=== PATIENT | male | born 1965 | race Two or more races ===

== ENCOUNTER 2020-12-18 20:32 | Emergency (ER) | payer BC, SELFPAY ==
[~2020-12-18] VITALS: Ht 182.9 cm; Wt 104.5 kg
--- NOTE | 2020-12-18 20:55 | NUR ---
PATIENT BROUGHT IN BY [facility] FOR ETOH AND SI. DENIES HI. DENIES AH/VH. CRYING THROUGHOUT ASSESSMENT AND INTERMITTENT HYPERVENTILATION. PATIENT ASKS "CAN YOU JUST SHOOT ME OR PUT ME DOWN? I DONT WANT TO LIVE ANYMORE". EMS DID REPORT PATIENT HAD SAME STATEMENTS TO THEM WELL DURING TRANSPORT. CLOTHING REMOVED AND PLACED INTO PERSONAL PATIENT BELONGING BAGS AND PLACED IN SECURED LOCKED CABINET IN ER. 2 BAGS. SIDE RAILS UP FOR SAFETY. SITTER IN VIEW OF PATIENT FOR SAFETY. WARM BLANKET PROVIDED. WILL CONTINUE TO MONITOR. Addendum: 12/18/20 at 2057 by ADOUGHTY ROOM MADE SAFE FOR PATIENT
--- NOTE | 2020-12-18 21:13 | NUR ---
PATIENT CONTINUES TO BE IMPULSIVE GETTING UP OUT OF BED AND PULLING GOWN OFF AND BLANKETS. RN IN MULTIPLE TIMES TO BEDSIDE TO REDIRECT PATIENT AND INSTRUCT PATIENT TO RETURN TO BED. PATIENT IS ABLE TO FOLLOW THIS REQUEST. HE BEGINS TO CRY AND HYPERVENTILATE AND STATES "I WANT TO KILL MYSELF. I NEED TO LEAVE". SITTER IN VIEW OF PATIENT. SIDE RAILS REMAIN UP FOR SAFETY. I DO NOT FEEL PATIENT WOULD BE SAFE WITH CALL [facility] AT THIS TIME. WILL CONTNUE TO MONITOR.
[2020-12-18] MEDS ORDERED: ZIPRASIDONE 20 MG INJ IM ONE (21:30)
[2020-12-18 21:40] LABS: BASOPHILS % (AUTO) 1 % (0-1); EOSINOPHILS % (AUTO) 1 % (1-7); LYMPHOCYTES % (AUTO) 29 % (22-44); MEAN CORPUSCULAR HEMOGLOBIN 32.3 pg (27.5-34.5); MEAN CORPUSCULAR HGB CONC 34.8 g/dL (33.2-36.2); MEAN PLATELET VOLUME 6.7 fL (7.4-10.4); MONOCYTES % (AUTO) 10 % (2-9); NEUTROPHILS % (AUTO) 60 % (42-75); PLATELET COUNT 281 x10^3/uL (130-400); RED CELL DISTRIBUTION WIDTH 14.1 % (9.4-14.8)
[2020-12-18 21:41] LABS: MD NO
[2020-12-18 21:51] LABS: ALANINE AMINOTRANSFERASE 30 U/L (12-78); ALBUMIN 4.3 g/dL (3.4-5.0); ANION GAP 16 mmol/L (5-15); CALCIUM 8.5 mg/dL (8.5-10.1); CHLORIDE 108 mmol/L (98-107); SALICYLATE LEVEL 3.6 mg/dL (2.8-20.0)
[2020-12-18 21:54] LABS: AMPHETAMINE SCREEN, URINE Negative (Negative); BARBITURATE SCREEN, URINE Negative (Negative); BENZODIAZEPINE SCREEN, URINE Negative (Negative); CANNABINOID SCREEN, URINE Negative (Negative); COCAINE SCREEN, URINE Negative (Negative); METHADONE SCREEN, URINE Negative (Negative); OPIATE SCREEN, URINE Negative (Negative)
[2020-12-18] MEDS ORDERED: PLEASE ENTER ALLERGIES MC SCH (22:00)
[2020-12-18 22:02] LABS: ALKALINE PHOSPHATASE 104 U/L (45-117); BILIRUBIN,TOTAL 0.5 mg/dL (0.2-1.0); CREATININE 1.04 mg/dL (0.7-1.3); TOTAL PROTEIN 8.6 g/dL (6.4-8.2)
--- NOTE | 2020-12-18 22:15 | NUR ---
PATIENT RESTLESS IN ROOM BUT REDIRECTABLE. HE IS FOLLOWING COMMANDS AT THIS TIME. PATIENT REPEATING URGE TO "HAVE A SMOKE". DR. NÚÑEZ NOTIFIED OF THIS AND NICOTINE PATCH ORDERED. SITTER IN VIEW OF PATIENT. CUP OF WATER PROVIDED X 2. WILL CONTINUE TO MONITOR
[2020-12-18] MEDS ORDERED: NICOTINE 21 MG/24 HR PATCH.TD24 ONE (22:19)
[2020-12-18] MEDS ORDERED: NICOTINE 21 MG/24 HR PATCH.TD24 TD ONE (22:30)
--- NOTE | 2020-12-18 22:35 | NUR ---
PATIENT REQUESTING "SOMETHING TO KNOCK ME OUT. I WANT TO SLEEP BUT I HAVE INSOMNIA". LIGHTS DIMMED PER PATIENT REQUEST AND 2 CUPS OF WATER PROVIDED. SITTER IN VIEW OF PATIENT FOR SAFETY. WILL CONTINUE TO MONITOR
--- NOTE | 2020-12-18 23:14 | NUR ---
PATIENT NOT STAYING IN BED AND CONTINUES TO GET UP AND ASK FOR WATER. 6 CUP OF WATER PROVIDED TO PATIENT IN APPROX 30 MINUTES. PATIENT NOT ADHERING TO REQUESTS OF STAYING IN BED. PATIENT REPORTED ON ARRIVAL TO ER THAT HIS SI HAS BEEN CHRONIC "YEMARISELA GONSALEZ HAD SUICIDAL THOUGHTS FOR YEARS". PATIENT REPORTS THAT HE DOES WANT HELP. HAS NOT VOICED SI DURING MD AND PATIENT'S CONVERSATION. PATIENT IS STARTING TO STAFF SPLIT BY STATING IM A LIAR AND IM MEAN BECAUSE I WILLL NOT GIVE HIM MORE WATER WHEN HE DEMANDS IT. I HAVE BEEN CHECKING ON THIS PATIENT Q5 MINUTES DUE TO HIS BEHAVIOR AND ROWDINESS. DR. NÚÑEZ AND PATIENT DECIDED ON PLAN OF CARE TO DISCHARGE PATIENT AND SUPPLY HIM WITH CAB VOUCHER TO [place] TO RECEIVE CLINICAL SCIENTIST TREATMENT FOR HIS ALCOHOL ADDICTION AND DEPENDENCE. PATIENT AGREED TO DO THIS. STEADY GAIT IN ROOM. A&OX4.
--- NOTE | 2020-12-18 23:30 | NUR ---
DISCHARGE INSTRUCTIONS REVIEWED WITH PATIENT. [employer]OURCE [employer] FOR PSYCH/THERAPY, DRUG/ALCOHOL ADDICTION FACILITIES AND HOUSING COMMUNITY RESOURCES PROVIDED AND REVIEWED. CAB VOUCHER TO [place] PROVIDED AND PATIENT STATES "I WILL GO. I KNOW I NEED HELP". STEADY GAIT TO LOBBY. ALL PERSONAL BELONGINGS WITH PATIENT ON DEPARTURE. A&OX4 ON DEPARTURE. NO IV PLACED DURING THIS ER VISIT
[2020-12-18 23:41] VITALS: BP 139/102
== END 2020-12-18 23:44 | disposition home or self-care (01) ==
LOC: ED 23:33
DX: R45.851 Suicidal ideations (principal); F10.220 Alcohol dependence with intoxication, uncomplicated; F32.9 Major depressive disorder, single episode, unspecified; Y90.0 Blood alcohol level of less than 20 mg/100 ml
CPT/HCPCS: 36415; 80053; 80299; 80307; 80320; 80329; 85025; 99284; G0480

== ENCOUNTER 2021-01-07 16:11 | Emergency (ER) | payer SELFPAY ==
[~2021-01-07] VITALS: Ht 185.4 cm; Wt 88.6 kg
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
[2021-01-07 16:51] LABS: BASOPHILS % (AUTO) 1 % (0-1); EOSINOPHILS % (AUTO) 2 % (1-7); LYMPHOCYTES % (AUTO) 32 % (22-44); MEAN CORPUSCULAR HEMOGLOBIN 32.6 pg (27.5-34.5); MEAN CORPUSCULAR HGB CONC 34.9 g/dL (33.2-36.2); MEAN PLATELET VOLUME 7.2 fL (7.4-10.4); MONOCYTES % (AUTO) 8 % (2-9); NEUTROPHILS % (AUTO) 58 % (42-75); PLATELET COUNT 329 x10^3/uL (130-400); RED BLOOD COUNT 4.79 x10^6/uL (4.38-5.82); RED CELL DISTRIBUTION WIDTH 14.4 % (9.4-14.8)
[2021-01-07 16:52] LABS: MD NO
[2021-01-07 16:55] LABS: ALANINE AMINOTRANSFERASE 31 U/L (12-78); ALBUMIN 3.8 g/dL (3.4-5.0); ANION GAP 9 mmol/L (5-15); CALCIUM 8.7 mg/dL (8.5-10.1); CHLORIDE 112 mmol/L (98-107); CREATININE 0.82 mg/dL (0.7-1.3)
[2021-01-07 16:57] LABS: ALKALINE PHOSPHATASE 89 U/L (45-117); BILIRUBIN,TOTAL 0.2 mg/dL (0.2-1.0); TOTAL PROTEIN 7.9 g/dL (6.4-8.2)
--- NOTE | 2021-01-07 17:19 | NUR ---
Pt moved to room 3. Room secured, sitter within eyesight of pt, all safety measures observed.
[2021-01-07 17:25] LABS: MICROSCOPIC NOT IND
[2021-01-07 17:36] LABS: AMPHETAMINE SCREEN, URINE Negative (Negative); BARBITURATE SCREEN, URINE Negative (Negative); BENZODIAZEPINE SCREEN, URINE Negative (Negative); CANNABINOID SCREEN, URINE Negative (Negative); COCAINE SCREEN, URINE Negative (Negative); METHADONE SCREEN, URINE Negative (Negative); OPIATE SCREEN, URINE Negative (Negative)
--- NOTE | 2021-01-07 18:19 | NUR ---
Pt resting in bed with eyes closed, resp even and unlabored, NADN. Room remains secured, sitter within eyesight of pt, all safety measures observed.
--- NOTE | 2021-01-07 18:59 | NUR ---
Report to Charisse KELLY.
--- NOTE | 2021-01-07 19:38 | NUR ---
pt sleeping in gurney, resp even/unlabored, in line of sight of clint
--- NOTE | 2021-01-07 22:17 | NUR ---
TP RN: PT DENIED BY [facility] DUE TO INSURANCE.
--- NOTE | 2021-01-07 23:24 | NUR ---
pt sitting up in [facility], provided water per request, abhay still above the limit, no other needs. in line of sight of sitter
[2021-01-07 23:52] VITALS: BP 110/65
--- NOTE | 2021-01-07 23:54 | NUR ---
pt steady ambulating, a/o x4. denies si/hi, erp spoke with pt and pt ok to go home.
== END 2021-01-07 23:56 | disposition home or self-care (01) ==
LOC: ED 21:22
DX: F10.220 Alcohol dependence with intoxication, uncomplicated (principal); Y90.0 Blood alcohol level of less than 20 mg/100 ml
CPT/HCPCS: 36415; 80053; 80143; 80179; 80307; 80320; 81003; 85025; 99283; G0480